=== PATIENT | male | born 1940 | race Caucasian/White ===

== ENCOUNTER 2020-07-17 11:45 | Inpatient (IN) ==
[2020-07-17] MEDS: IMBRUVICA 420 MG PO SCH (15:42)
[2020-07-17] MEDS ORDERED: Lactulose Oral Soln 20 GM/30 ML UDC PO PRN (18:06)
[2020-07-17] MEDS ORDERED: Bisacodyl 10 MG RECTAL SUPPOSITORY RC PRN (18:06)
[2020-07-17] MEDS: Apixaban 5 MG TABLET PO SCH (21:02)
[2020-07-17] MEDS: polyethylene glycoL 3350 17 GM POWD.PACK PO SCH (21:02)
[2020-07-17] MEDS: Sennosides/Docusate Sodium TABLET PO SCH (21:02)
[2020-07-18 07:01] LABS: Eosinophils # 0.3 K/mcL (0.0-0.6); Eosinophils % 0.5 %; Hematocrit 22.7 % (37.5-50.1); Hemoglobin 7.4 g/dL (12.9-16.9); Immature Granulocytes % 0.4 % (0-4); Lymphocytes # 55.4 K/mcL (0.6-4.6); Mean Corpuscular HGB Conc 32.6 g/dL (31.6-35.5); Mean Corpuscular Hemoglobin 32.2 pg (28.0-33.3); Mean Corpuscular Volume 98.7 fL (83.0-100.0); Mean Platelet Volume 10.7 fL (9.4-12.4); Monocytes # 0.5 K/mcL (0.0-1.3); Monocytes % 0.8 %; Platelet Count 157 K/mcL (140-400); Red Cell Distribution Width 13.8 % (11.5-14.5); Segmented Neutrophils % 12.3 %
[2020-07-18 07:07] LABS: Neutrophils # 7.9 K/mcL (1.6-8.9); White Blood Count 64.4 K/mcL (4.3-11.1)
[2020-07-18 07:20] LABS: BUN/Creatinine Ratio 25 (6-26); Blood Urea Nitrogen 31 mg/dL (8-23); Calcium 7.4 mg/dL (8.6-10.3); Carbon Dioxide 24 mEq/L (23-29); Chloride 97 mEq/L (98-107); Glucose 100 mg/dL (70-105); Osmolality,Calculated 273 (280-300); Potassium 3.7 mEq/L (3.5-5.1); Sodium 128 mEq/L (136-145); eGFR For African Americans > 60 (> 60); eGFR For Non-African Americans 55 (> 60)
[2020-07-18 07:36] LABS: Anisocytosis 1+ (Not Present); Hypochromasia Present (Not Present); Platelet Estimate Normal (Normal); Reactive Lymphocytes Present (Not Present); Toxic Granulation Present (Not Present)
[2020-07-18] MEDS: Sennosides/Docusate Sodium TABLET PO SCH ×2 (09:13→21:57)
[2020-07-18] MEDS: polyethylene glycoL 3350 17 GM POWD.PACK PO SCH (09:13)
[2020-07-18] MEDS: Apixaban 5 MG TABLET PO SCH ×2 (09:13→21:57)
[2020-07-18] MEDS: IMBRUVICA 420 MG PO SCH (15:21)
[2020-07-18] MEDS: *HR* HYDROcodone/Acet 5/325 mg TABLET PO PRN (21:57)
[2020-07-19 06:00] LABS: Mean Corpuscular HGB Conc 31.8 g/dL (31.6-35.5); Mean Corpuscular Hemoglobin 31.4 pg (28.0-33.3); Mean Corpuscular Volume 98.7 fL (83.0-100.0); Platelet Count 177 K/mcL (140-400); Red Blood Count 2.23 M/mcL (4.19-5.50); Red Cell Distribution Width 13.7 % (11.5-14.5)
[2020-07-19 06:02] LABS: White Blood Count 63.5 K/mcL (4.3-11.1)
[2020-07-19 06:31] LABS: Lymphocytes # 58.4 K/mcL (0.6-4.6); Neutrophils # 5.1 K/mcL (1.6-8.9)
[2020-07-19 06:34] LABS: Platelet Estimate Normal (Normal); Smudge Cells Present (Not Present)
[2020-07-19 06:35] LABS: Anisocytosis 1+ (Not Present); Hypochromasia Present (Not Present)
[2020-07-19] MEDS ORDERED: Furosemide 20 MG/2 ML VIAL IVP ONE (09:32)
[2020-07-19] MEDS ORDERED: Bisacodyl 10 MG RECTAL SUPPOSITORY RC STA (09:34)
[2020-07-19] MEDS ORDERED: 0.9 % Sodium Chloride 250 ML IVC SCH (09:45)
[2020-07-19] MEDS: polyethylene glycoL 3350 17 GM POWD.PACK PO SCH (10:06)
[2020-07-19] MEDS: Apixaban 5 MG TABLET PO SCH ×2 (10:06→19:43)
[2020-07-19] MEDS: Sennosides/Docusate Sodium TABLET PO SCH ×2 (10:06→19:43)
[2020-07-19] MEDS: IMBRUVICA 420 MG PO SCH (16:26)
[2020-07-19] MEDS: Acetaminophen 325 MG TABLET PO PRN (17:57)
[2020-07-19 18:34] LABS: Hematocrit 24.6 % (37.5-50.1); Hemoglobin 8.1 g/dL (12.9-16.9); Mean Corpuscular HGB Conc 32.9 g/dL (31.6-35.5); Mean Corpuscular Hemoglobin 31.5 pg (28.0-33.3); Mean Corpuscular Volume 95.7 fL (83.0-100.0); Mean Platelet Volume 10.8 fL (9.4-12.4); Nucleated Red Blood Cells 0.1 /100 WBC (0); Platelet Count 201 K/mcL (140-400); Red Blood Count 2.57 M/mcL (4.19-5.50); Red Cell Distribution Width 14.4 % (11.5-14.5)
[2020-07-19 18:42] LABS: White Blood Count 58.5 K/mcL (4.3-11.1)
[2020-07-19 18:44] LABS: Bilirubin,Urine Negative (Negative); Blood,Urine Large (Negative); Clarity,Urine Clear (Clear); Color,Urine Yellow (Yellow); Glucose,Urine (UA) Normal (Normal); Ketones,Urine Negative (Negative); Leukocyte Esterase,Urine Negative (Negative); Nitrite,Urine Negative (Negative); Protein,Urine Negative (Neg-Trace); Specific Gravity,Urine 1.015 (1.010-1.025); Urobilinogen,Urine Normal (Normal)
[2020-07-19 19:29] LABS: Squamous Epithelial Cell,Urine Few per hpf (None-Few)
[2020-07-19 19:30] LABS: Bacteria,Urine Moderate per hpf (None-Few); Mucus,Urine Few per lpf (None-Few); WBC,Urine 0-3 per hpf (0-3)
[2020-07-19 19:33] LABS: Granular Casts,Urine Few per lpf (None Seen)
[2020-07-19 19:36] LABS: RBC,Urine TNTC per hpf (0-3)
[2020-07-19] MEDS: *HR* HYDROcodone/Acet 5/325 mg TABLET PO PRN (19:43)
[2020-07-19 19:47] LABS: Neutrophils # 3.5 K/mcL (1.6-8.9)
[2020-07-19 19:53] LABS: Hypochromasia Present (Not Present); Platelet Estimate Normal (Normal)
[2020-07-19 19:54] LABS: Anisocytosis 1+ (Not Present); Smudge Cells Present (Not Present)
[2020-07-19 23:42] LABS: Bilirubin,Urine Negative (Negative); Blood,Urine Moderate (Negative); Clarity,Urine Clear (Clear); Color,Urine Yellow (Yellow); Glucose,Urine (UA) Normal (Normal); Ketones,Urine Negative (Negative); Leukocyte Esterase,Urine Negative (Negative); Nitrite,Urine Negative (Negative); Protein,Urine Negative (Neg-Trace); Specific Gravity,Urine 1.015 (1.010-1.025); Urobilinogen,Urine Normal (Normal)
[2020-07-19 23:54] LABS: Bacteria,Urine Moderate per hpf (None-Few); RBC,Urine 15-30 per hpf (0-3); Squamous Epithelial Cell,Urine Few per hpf (None-Few); WBC,Urine 0-3 per hpf (0-3)
[2020-07-19 23:55] LABS: Hyaline Casts,Urine Few per lpf (None Seen)
[2020-07-20 06:13] LABS: Basophils # 0.2 K/mcL (0.0-0.2); Basophils % 0.3 %; Eosinophils # 0.4 K/mcL (0.0-0.6); Eosinophils % 0.7 %; Hematocrit 24.4 % (37.5-50.1); Immature Granulocytes % 0.3 % (0-4); Lymphocytes # 54.9 K/mcL (0.6-4.6); Lymphocytes % 87.8 %; Mean Corpuscular HGB Conc 32.8 g/dL (31.6-35.5); Mean Corpuscular Hemoglobin 31.6 pg (28.0-33.3); Mean Corpuscular Volume 96.4 fL (83.0-100.0); Mean Platelet Volume 10.5 fL (9.4-12.4); Monocytes # 0.5 K/mcL (0.0-1.3); Monocytes % 0.8 %; Neutrophils # 6.3 K/mcL (1.6-8.9); Platelet Count 209 K/mcL (140-400); Red Blood Count 2.53 M/mcL (4.19-5.50); Red Cell Distribution Width 14.6 % (11.5-14.5); Segmented Neutrophils % 10.1 %
[2020-07-20 06:33] LABS: BUN/Creatinine Ratio 28 (6-26); Blood Urea Nitrogen 31 mg/dL (8-23); Calcium 7.6 mg/dL (8.6-10.3); Carbon Dioxide 24 mEq/L (23-29); Chloride 100 mEq/L (98-107); Glucose 100 mg/dL (70-105); Magnesium 1.9 mg/dL (1.6-2.6); Osmolality,Calculated 281 (280-300); Potassium 3.8 mEq/L (3.5-5.1); Sodium 132 mEq/L (136-145); eGFR For African Americans > 60 (> 60); eGFR For Non-African Americans > 60 (> 60)
[2020-07-20 06:35] LABS: White Blood Count 62.5 K/mcL (4.3-11.1)
[2020-07-20 08:20] LABS: Platelet Estimate Normal (Normal)
[2020-07-20] MEDS: Apixaban 5 MG TABLET PO SCH ×2 (08:45→20:15)
[2020-07-20] MEDS: Sennosides/Docusate Sodium TABLET PO SCH ×2 (08:45→20:15)
[2020-07-20] MEDS: polyethylene glycoL 3350 17 GM POWD.PACK PO SCH (08:45)
[2020-07-20] MEDS: *HR* HYDROcodone/Acet 5/325 mg TABLET PO PRN ×2 (08:50→21:45)
[2020-07-20] MEDS: IMBRUVICA 420 MG PO SCH (14:50)
[2020-07-21] MEDS: *HR* HYDROcodone/Acet 5/325 mg TABLET PO PRN ×2 (05:58→19:59)
[2020-07-21] MEDS: Sennosides/Docusate Sodium TABLET PO SCH ×2 (09:07→21:37)
[2020-07-21] MEDS: polyethylene glycoL 3350 17 GM POWD.PACK PO SCH (09:07)
[2020-07-21] MEDS: Apixaban 5 MG TABLET PO SCH ×2 (09:07→19:59)
[2020-07-21] MEDS: Acetaminophen 325 MG TABLET PO PRN (09:14)
[2020-07-21] MEDS: IMBRUVICA 420 MG PO SCH (15:17)
[2020-07-22 05:28] LABS: Hematocrit 22.9 % (37.5-50.1); Hemoglobin 7.3 g/dL (12.9-16.9); Mean Corpuscular HGB Conc 31.9 g/dL (31.6-35.5); Mean Corpuscular Hemoglobin 31.3 pg (28.0-33.3); Mean Corpuscular Volume 98.3 fL (83.0-100.0); Mean Platelet Volume 10.3 fL (9.4-12.4); Platelet Count 283 K/mcL (140-400); Red Blood Count 2.33 M/mcL (4.19-5.50); Red Cell Distribution Width 14.4 % (11.5-14.5)
[2020-07-22 05:32] LABS: White Blood Count 60.8 K/mcL (4.3-11.1)
[2020-07-22 05:43] LABS: BUN/Creatinine Ratio 24 (6-26); Blood Urea Nitrogen 24 mg/dL (8-23); Calcium 7.7 mg/dL (8.6-10.3); Carbon Dioxide 26 mEq/L (23-29); Chloride 100 mEq/L (98-107); Glucose 97 mg/dL (70-105); Osmolality,Calculated 278 (280-300); Sodium 132 mEq/L (136-145); eGFR For African Americans > 60 (> 60); eGFR For Non-African Americans > 60 (> 60)
[2020-07-22] MEDS: Apixaban 5 MG TABLET PO SCH ×2 (09:26→20:37)
[2020-07-22] MEDS: polyethylene glycoL 3350 17 GM POWD.PACK PO SCH (09:26)
[2020-07-22] MEDS: Sennosides/Docusate Sodium TABLET PO SCH ×2 (09:27→20:38)
[2020-07-22] MEDS: IMBRUVICA 420 MG PO SCH (15:36)
[2020-07-22] MEDS: *HR* HYDROcodone/Acet 5/325 mg TABLET PO PRN (20:51)
[2020-07-23 05:42] LABS: Basophils # 0.2 K/mcL (0.0-0.2); Basophils % 0.3 %; Eosinophils # 0.4 K/mcL (0.0-0.6); Eosinophils % 0.7 %; Hematocrit 23.1 % (37.5-50.1); Hemoglobin 7.4 g/dL (12.9-16.9); Immature Granulocytes % 0.5 % (0-4); Lymphocytes % 88.6 %; Mean Corpuscular Hemoglobin 31.4 pg (28.0-33.3); Mean Corpuscular Volume 97.9 fL (83.0-100.0); Mean Platelet Volume 10.3 fL (9.4-12.4); Monocytes # 0.4 K/mcL (0.0-1.3); Monocytes % 0.6 %; Neutrophils # 5.7 K/mcL (1.6-8.9); Platelet Count 352 K/mcL (140-400); Red Blood Count 2.36 M/mcL (4.19-5.50); Red Cell Distribution Width 14.5 % (11.5-14.5); Segmented Neutrophils % 9.3 %
[2020-07-23 05:49] LABS: White Blood Count 60.9 K/mcL (4.3-11.1)
[2020-07-23] MEDS: Sennosides/Docusate Sodium TABLET PO SCH ×2 (08:36→20:31)
[2020-07-23] MEDS: polyethylene glycoL 3350 17 GM POWD.PACK PO SCH (08:36)
[2020-07-23] MEDS: Apixaban 5 MG TABLET PO SCH ×2 (08:36→20:31)
[2020-07-23] MEDS: *HR* HYDROcodone/Acet 5/325 mg TABLET PO PRN ×2 (08:36→16:24)
[2020-07-23 09:00] LABS: % Iron Saturation 11 % (20-55); Iron 29 mcg/dL (65-175); Transferrin 185 mg/dL (203-362)
[2020-07-23 11:58] LABS: Folate 9.6 ng/mL (3.0-16.0)
[2020-07-23] MEDS: IMBRUVICA 420 MG PO SCH (15:09)
[2020-07-24] MEDS: *HR* HYDROcodone/Acet 5/325 mg TABLET PO PRN ×3 (00:01→20:08)
[2020-07-24 05:42] LABS: Basophils # 0.1 K/mcL (0.0-0.2); Basophils % 0.1 %; Eosinophils # 0.6 K/mcL (0.0-0.6); Eosinophils % 0.9 %; Hematocrit 24.3 % (37.5-50.1); Hemoglobin 7.6 g/dL (12.9-16.9); Immature Granulocytes % 0.5 % (0-4); Lymphocytes # 55.9 K/mcL (0.6-4.6); Mean Corpuscular HGB Conc 31.3 g/dL (31.6-35.5); Mean Corpuscular Hemoglobin 30.6 pg (28.0-33.3); Mean Platelet Volume 9.9 fL (9.4-12.4); Monocytes # 0.4 K/mcL (0.0-1.3); Monocytes % 0.6 %; Neutrophils # 6.3 K/mcL (1.6-8.9); Platelet Count 386 K/mcL (140-400); Red Blood Count 2.48 M/mcL (4.19-5.50); Red Cell Distribution Width 14.7 % (11.5-14.5); Segmented Neutrophils % 9.9 %
[2020-07-24 05:45] LABS: White Blood Count 63.5 K/mcL (4.3-11.1)
[2020-07-24 06:02] LABS: BUN/Creatinine Ratio 23 (6-26); Blood Urea Nitrogen 23 mg/dL (8-23); Calcium 8.1 mg/dL (8.6-10.3); Carbon Dioxide 26 mEq/L (23-29); Chloride 99 mEq/L (98-107); Glucose 101 mg/dL (70-105); Osmolality,Calculated 278 (280-300); Potassium 4.5 mEq/L (3.5-5.1); Sodium 132 mEq/L (136-145); eGFR For African Americans > 60 (> 60); eGFR For Non-African Americans > 60 (> 60)
[2020-07-24 06:43] LABS: Platelet Estimate Normal (Normal); Smudge Cells Present (Not Present)
[2020-07-24] MEDS: Apixaban 5 MG TABLET PO SCH ×2 (09:12→20:08)
[2020-07-24] MEDS: Sennosides/Docusate Sodium TABLET PO SCH ×2 (09:12→20:09)
[2020-07-24] MEDS: Cholecalciferol (D-3) 1,000 UNIT (25MCG) TABLET PO SCH (09:12)
[2020-07-24] MEDS: polyethylene glycoL 3350 17 GM POWD.PACK PO SCH (09:13)
[2020-07-24] MEDS: IMBRUVICA 420 MG PO SCH (15:54)
[2020-07-25] MEDS: Apixaban 5 MG TABLET PO SCH ×2 (08:41→19:48)
[2020-07-25] MEDS: Cholecalciferol (D-3) 1,000 UNIT (25MCG) TABLET PO SCH (08:41)
[2020-07-25] MEDS: polyethylene glycoL 3350 17 GM POWD.PACK PO SCH (08:42)
[2020-07-25] MEDS: Sennosides/Docusate Sodium TABLET PO SCH ×2 (08:42→19:49)
[2020-07-25] MEDS: IMBRUVICA 420 MG PO SCH (14:56)
[2020-07-25] MEDS: *HR* HYDROcodone/Acet 5/325 mg TABLET PO PRN (19:48)
[2020-07-26] MEDS: *HR* HYDROcodone/Acet 5/325 mg TABLET PO PRN ×3 (06:04→20:04)
[2020-07-26 06:17] LABS: Hematocrit 25.8 % (37.5-50.1); Hemoglobin 8.2 g/dL (12.9-16.9); Mean Corpuscular HGB Conc 31.8 g/dL (31.6-35.5); Mean Corpuscular Hemoglobin 31.3 pg (28.0-33.3); Mean Corpuscular Volume 98.5 fL (83.0-100.0); Mean Platelet Volume 10.1 fL (9.4-12.4); Platelet Count 503 K/mcL (140-400); Red Blood Count 2.62 M/mcL (4.19-5.50); Red Cell Distribution Width 14.9 % (11.5-14.5)
[2020-07-26 06:41] LABS: BUN/Creatinine Ratio 29 (6-26); Blood Urea Nitrogen 29 mg/dL (8-23); Calcium 8.5 mg/dL (8.6-10.3); Carbon Dioxide 26 mEq/L (23-29); Chloride 100 mEq/L (98-107); Glucose 94 mg/dL (70-105); Osmolality,Calculated 282 (280-300); Potassium 4.7 mEq/L (3.5-5.1); Sodium 133 mEq/L (136-145); eGFR For African Americans > 60 (> 60); eGFR For Non-African Americans > 60 (> 60)
[2020-07-26 07:17] LABS: White Blood Count 64.2 K/mcL (4.3-11.1)
[2020-07-26 07:44] LABS: Lymphocytes # 53.9 K/mcL (0.6-4.6); Monocytes # 1.3 K/mcL (0.0-1.3); Neutrophils # 7.7 K/mcL (1.6-8.9); Platelet Estimate Increased (Normal)
[2020-07-26] MEDS: Cholecalciferol (D-3) 1,000 UNIT (25MCG) TABLET PO SCH (08:00)
[2020-07-26] MEDS: Apixaban 5 MG TABLET PO SCH ×2 (08:00→20:04)
[2020-07-26] MEDS: polyethylene glycoL 3350 17 GM POWD.PACK PO SCH (08:01)
[2020-07-26] MEDS: Sennosides/Docusate Sodium TABLET PO SCH ×2 (08:01→20:48)
[2020-07-26] MEDS: IMBRUVICA 420 MG PO SCH (17:06)
[2020-07-26] MEDS: tiZANidine 4 MG TABLET PO PRN (20:04)
[2020-07-27] MEDS: polyethylene glycoL 3350 17 GM POWD.PACK PO SCH (08:10)
[2020-07-27] MEDS: Sennosides/Docusate Sodium TABLET PO SCH (08:11)
[2020-07-27] MEDS: Cholecalciferol (D-3) 1,000 UNIT (25MCG) TABLET PO SCH (08:11)
[2020-07-27] MEDS: Apixaban 5 MG TABLET PO SCH ×2 (08:11→21:20)
[2020-07-27] MEDS: *HR* HYDROcodone/Acet 5/325 mg TABLET PO PRN ×2 (12:38→23:10)
[2020-07-27] MEDS ORDERED: polyethylene glycoL 3350 17 GM POWD.PACK PO PRN (13:25)
[2020-07-27] MEDS ORDERED: Sennosides/Docusate Sodium TABLET PO PRN (13:26)
[2020-07-27] MEDS: IMBRUVICA 420 MG PO SCH (15:15)
[2020-07-27] MEDS: tiZANidine 4 MG TABLET PO PRN (15:16)
[2020-07-27] MEDS: Acetaminophen 325 MG TABLET PO PRN (16:50)
[2020-07-28] MEDS: Cholecalciferol (D-3) 1,000 UNIT (25MCG) TABLET PO SCH (09:27)
[2020-07-28] MEDS: Apixaban 5 MG TABLET PO SCH ×2 (09:27→20:20)
[2020-07-28] MEDS: *HR* HYDROcodone/Acet 5/325 mg TABLET PO PRN ×2 (09:27→23:08)
[2020-07-28] MEDS: IMBRUVICA 420 MG PO SCH (15:21)
[2020-07-29] MEDS: Cholecalciferol (D-3) 1,000 UNIT (25MCG) TABLET PO SCH (09:32)
[2020-07-29] MEDS: Apixaban 5 MG TABLET PO SCH ×2 (09:32→21:28)
[2020-07-29] MEDS: IMBRUVICA 420 MG PO SCH (14:50)
[2020-07-29] MEDS: *HR* HYDROcodone/Acet 5/325 mg TABLET PO PRN (21:27)
[2020-07-30] MEDS: *HR* HYDROcodone/Acet 5/325 mg TABLET PO PRN ×2 (05:42→20:45)
[2020-07-30] MEDS: Cholecalciferol (D-3) 1,000 UNIT (25MCG) TABLET PO SCH (08:29)
[2020-07-30] MEDS: Apixaban 5 MG TABLET PO SCH ×2 (08:29→20:45)
[2020-07-30] MEDS: IMBRUVICA 420 MG PO SCH (15:36)
[2020-07-31] MEDS: *HR* HYDROcodone/Acet 5/325 mg TABLET PO PRN ×2 (06:16→17:26)
[2020-07-31] MEDS: Cholecalciferol (D-3) 1,000 UNIT (25MCG) TABLET PO SCH (10:06)
[2020-07-31] MEDS: Apixaban 5 MG TABLET PO SCH ×2 (10:06→21:29)
[2020-07-31] MEDS: Acetaminophen 325 MG TABLET PO PRN ×2 (10:06→21:29)
[2020-07-31] MEDS: IMBRUVICA 420 MG PO SCH (15:26)
[2020-08-01] MEDS: *HR* HYDROcodone/Acet 5/325 mg TABLET PO PRN ×3 (02:27→20:20)
[2020-08-01] MEDS: Apixaban 5 MG TABLET PO SCH ×2 (08:41→20:21)
[2020-08-01] MEDS: Cholecalciferol (D-3) 1,000 UNIT (25MCG) TABLET PO SCH (08:41)
[2020-08-01] MEDS: IMBRUVICA 420 MG PO SCH (15:58)
[2020-08-02] MEDS: *HR* HYDROcodone/Acet 5/325 mg TABLET PO PRN ×2 (05:59→20:28)
[2020-08-02] MEDS: Apixaban 5 MG TABLET PO SCH ×2 (09:09→20:27)
[2020-08-02] MEDS: Cholecalciferol (D-3) 1,000 UNIT (25MCG) TABLET PO SCH (09:09)
[2020-08-02] MEDS ORDERED: Capsaicin 0.025% 60 GM TUBE TP PRN (09:35)
[2020-08-02] MEDS: IMBRUVICA 420 MG PO SCH (15:47)
[2020-08-03] MEDS: *HR* HYDROcodone/Acet 5/325 mg TABLET PO PRN ×2 (05:41→21:17)
[2020-08-03] MEDS: Apixaban 5 MG TABLET PO SCH ×2 (08:16→21:18)
[2020-08-03] MEDS: Cholecalciferol (D-3) 1,000 UNIT (25MCG) TABLET PO SCH (08:16)
[2020-08-03] MEDS: IMBRUVICA 420 MG PO SCH (15:22)
[2020-08-04] MEDS: *HR* HYDROcodone/Acet 5/325 mg TABLET PO PRN ×2 (05:41→13:31)
[2020-08-04] MEDS: Apixaban 5 MG TABLET PO SCH ×2 (09:09→20:44)
[2020-08-04] MEDS: Cholecalciferol (D-3) 1,000 UNIT (25MCG) TABLET PO SCH (09:09)
[2020-08-04] MEDS: IMBRUVICA 420 MG PO SCH (16:16)
[2020-08-05] MEDS: *HR* HYDROcodone/Acet 5/325 mg TABLET PO PRN ×2 (03:32→21:57)
[2020-08-05 06:10] LABS: Basophils # 0.1 K/mcL (0.0-0.2); Basophils % 0.2 %; Eosinophils # 0.4 K/mcL (0.0-0.6); Eosinophils % 1.2 %; Hematocrit 28.5 % (37.5-50.1); Hemoglobin 9.2 g/dL (12.9-16.9); Immature Granulocytes % 0.2 % (0-4); Lymphocytes # 28.7 K/mcL (0.6-4.6); Mean Corpuscular HGB Conc 32.3 g/dL (31.6-35.5); Mean Corpuscular Hemoglobin 32.1 pg (28.0-33.3); Mean Corpuscular Volume 99.3 fL (83.0-100.0); Mean Platelet Volume 9.3 fL (9.4-12.4); Monocytes # 0.3 K/mcL (0.0-1.3); Neutrophils # 4.6 K/mcL (1.6-8.9); Platelet Count 461 K/mcL (140-400); Red Blood Count 2.87 M/mcL (4.19-5.50); Segmented Neutrophils % 13.4 %
[2020-08-05 06:21] LABS: White Blood Count 34.2 K/mcL (4.3-11.1)
[2020-08-05 06:33] LABS: BUN/Creatinine Ratio 28 (6-26); Blood Urea Nitrogen 29 mg/dL (8-23); Calcium 8.5 mg/dL (8.6-10.3); Carbon Dioxide 26 mEq/L (23-29); Chloride 101 mEq/L (98-107); Glucose 95 mg/dL (70-105); Osmolality,Calculated 286 (280-300); Potassium 4.4 mEq/L (3.5-5.1); Sodium 135 mEq/L (136-145); eGFR For African Americans > 60 (> 60); eGFR For Non-African Americans > 60 (> 60)
[2020-08-05 07:10] LABS: Platelet Estimate Normal (Normal)
[2020-08-05 07:11] LABS: Anisocytosis 1+ (Not Present); Hypochromasia Present (Not Present); Polychromasia 1+ (Not Present)
[2020-08-05] MEDS: Apixaban 5 MG TABLET PO SCH ×2 (08:38→21:58)
[2020-08-05] MEDS: Cholecalciferol (D-3) 1,000 UNIT (25MCG) TABLET PO SCH (08:38)
[2020-08-05] MEDS ORDERED: Methyl Salicylate/Menthol 57 APPL/57 GM TUBE TP PRN (14:16)
[2020-08-05] MEDS: IMBRUVICA 420 MG PO SCH (15:48)
[2020-08-06] MEDS: Acetaminophen 325 MG TABLET PO PRN (05:17)
[2020-08-06] MEDS: Apixaban 5 MG TABLET PO SCH ×2 (08:25→20:23)
[2020-08-06] MEDS: Cholecalciferol (D-3) 1,000 UNIT (25MCG) TABLET PO SCH (08:25)
[2020-08-06] MEDS: IMBRUVICA 420 MG PO SCH (14:53)
[2020-08-06] MEDS: *HR* HYDROcodone/Acet 5/325 mg TABLET PO PRN (20:23)
[2020-08-07] MEDS: Apixaban 5 MG TABLET PO SCH ×2 (08:25→20:25)
[2020-08-07] MEDS: Cholecalciferol (D-3) 1,000 UNIT (25MCG) TABLET PO SCH (08:25)
[2020-08-07] MEDS: Acetaminophen 325 MG TABLET PO PRN (08:25)
[2020-08-07] MEDS: IMBRUVICA 420 MG PO SCH (15:22)
[2020-08-08 07:16] LABS: Basophils # 0.1 K/mcL (0.0-0.2); Basophils % 0.2 %; Eosinophils # 0.4 K/mcL (0.0-0.6); Eosinophils % 1.2 %; Hematocrit 30.2 % (37.5-50.1); Hemoglobin 9.8 g/dL (12.9-16.9); Immature Granulocytes % 0.3 % (0-4); Lymphocytes # 29.5 K/mcL (0.6-4.6); Lymphocytes % 86.6 %; Mean Corpuscular HGB Conc 32.5 g/dL (31.6-35.5); Mean Corpuscular Hemoglobin 31.9 pg (28.0-33.3); Mean Corpuscular Volume 98.4 fL (83.0-100.0); Mean Platelet Volume 9.2 fL (9.4-12.4); Monocytes # 0.3 K/mcL (0.0-1.3); Monocytes % 0.9 %; Neutrophils # 3.7 K/mcL (1.6-8.9); Platelet Count 386 K/mcL (140-400); Red Blood Count 3.07 M/mcL (4.19-5.50); Red Cell Distribution Width 15.7 % (11.5-14.5); Segmented Neutrophils % 10.8 %
[2020-08-08 07:20] LABS: White Blood Count 34.1 K/mcL (4.3-11.1)
[2020-08-08] MEDS: Cholecalciferol (D-3) 1,000 UNIT (25MCG) TABLET PO SCH (07:54)
[2020-08-08] MEDS: Apixaban 5 MG TABLET PO SCH ×2 (07:55→20:19)
[2020-08-08 08:49] LABS: Anisocytosis 1+ (Not Present); Platelet Estimate Normal (Normal); Toxic Granulation Present (Not Present)
[2020-08-08 09:33] LABS: BUN/Creatinine Ratio 27 (6-26); Blood Urea Nitrogen 27 mg/dL (8-23); Calcium 8.8 mg/dL (8.6-10.3); Carbon Dioxide 25 mEq/L (23-29); Chloride 102 mEq/L (98-107); Glucose 89 mg/dL (70-105); Osmolality,Calculated 283 (280-300); Potassium 4.2 mEq/L (3.5-5.1); Sodium 134 mEq/L (136-145); eGFR For African Americans > 60 (> 60); eGFR For Non-African Americans > 60 (> 60)
[2020-08-08] MEDS: IMBRUVICA 420 MG PO SCH (15:57)
[2020-08-09] MEDS: Apixaban 5 MG TABLET PO SCH ×2 (09:06→20:47)
[2020-08-09] MEDS: Cholecalciferol (D-3) 1,000 UNIT (25MCG) TABLET PO SCH (09:07)
[2020-08-09] MEDS: IMBRUVICA 420 MG PO SCH (16:50)
[2020-08-10 07:04] VITALS: BP 131/82
[2020-08-10] MEDS: Apixaban 5 MG TABLET PO SCH (08:41)
[2020-08-10] MEDS: Cholecalciferol (D-3) 1,000 UNIT (25MCG) TABLET PO SCH (08:41)
== END 2020-08-10 15:25 | disposition home health service (06) | DRG 559 ==
LOC: INPPIK 14:36
PROVIDERS: ADMIT Family Medicine; ATTEND Family Medicine